=== PATIENT | male | born 1970 | race Hispanic/Latino ===

== ENCOUNTER 2017-10-05 18:00 | Emergency (ER) | payer OTHER ==
[~2017-10-05] VITALS: Ht 165.1 cm; Wt 75.0 kg
[2017-10-05] MEDS ORDERED: BACTRIM DS1 TAB PO (19:58)
[2017-10-05] MEDS ORDERED: CEPHALEXIN500 MG PO (19:58)
[2017-10-05 20:20] VITALS: BP 132/80
== END 2017-10-05 20:22 | disposition home or self-care (01) | DRG 605 ==
LOC: ED 18:00
PROC: 0HQDXZZ Repair Right Lower Arm Skin, External Approach (ICD-10-PCS; principal; 2017-10-05)
DX: S51.811A Laceration without foreign body of right forearm, initial encounter (principal); W31.2XXA Contact with powered woodworking and forming machines, initial encounter; Y93.H2 Activity, gardening and landscaping; Y92.007 Garden or yard of unspecified non-institutional (private) residence as the place of occurrence of the external cause

== ENCOUNTER 2023-06-24 21:45 | Inpatient (IN) | payer SELFPAY ==
[~2023-06-24] VITALS: Ht 165.1 cm; Wt 60.5 kg
[~2023-06-24 21:45] MED LIST: BACTRIM DS1 TAB PO; CEPHALEXIN500 MG PO
[2023-06-25] VITALS (26 sets, daily range): BP systolic 102–147; BP diastolic 49–105
[2023-06-25 05:49] LABS: BASO% 0.7 % (0-3); EOS% 3.2 % (0-8); HEMATOCRIT 30.3 % (39.0-50.0); HEMOGLOBIN 9.5 g/dl (14.0-18.0); IMMATURE GRANULOCYTES 0.9 % (0.0-5.0); LYMPH% 41.8 % (15-41); MEAN CELL VOLUME 91.5 fL CALC (80.0-100.0); MEAN CORPUSCULAR HGB 28.7 pG CALC (26.0-32.0); MEAN CORPUSCULAR HGB CONC 31.4 g/dL CAL (32.0-36.0); MONO% 10.8 % (2-13); NEUT# 3.21 thou/uL (1.82-7.42); NEUT% 42.6 % (42-76); RED BLOOD COUNT 3.31 mill/uL (4.70-6.10); RED CELL DISTRI WIDTH 17.5 % (11.5-15.5)
[2023-06-25 06:06] LABS: ALBUMIN 2.6 g/dL (3.2-5.0); ALKALINE PHOSPHATASE 631 u/l (38-126); ANION GAP 11 (6-22 (CALC)); BILIRUBIN, TOTAL 0.8 mg/dL (0.2-1.3); BUN 16 mg/dL (9-20); BUN/CREATININE RATIO 67 (12-20 (CALC)); CALCULATED LDLCHOLESTEROL 74 mg/dL (62-129 (CALC)); CARBON DIOXIDE 24 mmol/l (22-30); CHLORIDE 105 mmol/l (95-108); CHOLESTEROL HDL RATIO 3.2 (<4.4 (CALC)); CREATININE 0.2 mg/dL (0.7-1.3); GFR FOR AFR.AMER. > 60 ML/MIN (>=60 (CALC)); GFR OTHER RACES > 60 ML/MIN (>=60 (CALC)); HDL CHOLESTEROL 39 mg/dL (39.0-59.0); MAGNESIUM 1.6 mg/dL (1.6-2.3); POTASSIUM 3.8 mmol/l (3.5-5.1); SGOT/AST 71 u/l (17-59); SODIUM 136 mmol/l (137-146); TOTAL CHOLESTEROL 124 mg/dl (0-199); TOTAL PROTEIN 6.5 g/dL (6.3-8.2); TOTAL TRIGLYCERIDES 57 mg/dl (0-149); VLDL CHOLESTROL 11 mg/dl (8-62 (CALC))
[2023-06-26] VITALS (19 sets, daily range): BP systolic 105–161; BP diastolic 51–84
[2023-06-26 07:35] LABS: BASO% 0.6 % (0-3); EOS% 4.8 % (0-8); HEMATOCRIT 35.6 % (39.0-50.0); IMMATURE GRANULOCYTES 0.7 % (0.0-5.0); LYMPH% 37.5 % (15-41); MEAN CELL VOLUME 94.7 fL CALC (80.0-100.0); MEAN CORPUSCULAR HGB 29.3 pG CALC (26.0-32.0); MEAN CORPUSCULAR HGB CONC 30.9 g/dL CAL (32.0-36.0); MONO% 10.5 % (2-13); NEUT# 3.24 thou/uL (1.82-7.42); NEUT% 45.9 % (42-76); RED BLOOD COUNT 3.76 mill/uL (4.70-6.10); RED CELL DISTRI WIDTH 16.8 % (11.5-15.5)
[2023-06-26 08:01] LABS: ALBUMIN 2.7 g/dL (3.2-5.0); ALKALINE PHOSPHATASE 562 u/l (38-126); ANION GAP 10 (6-22 (CALC)); BILIRUBIN, TOTAL 0.9 mg/dL (0.2-1.3); BUN 9 mg/dL (9-20); BUN/CREATININE RATIO 47 (12-20 (CALC)); CARBON DIOXIDE 20 mmol/l (22-30); CHLORIDE 109 mmol/l (95-108); CREATININE 0.2 mg/dL (0.7-1.3); GFR FOR AFR.AMER. > 60 ML/MIN (>=60 (CALC)); GFR OTHER RACES > 60 ML/MIN (>=60 (CALC)); MAGNESIUM 1.7 mg/dL (1.6-2.3); POTASSIUM 3.9 mmol/l (3.5-5.1); SGOT/AST 78 u/l (17-59); SODIUM 136 mmol/l (137-146); TOTAL PROTEIN 6.9 g/dL (6.3-8.2)
[2023-06-27 03:22] VITALS: BP 97/49
[2023-06-27 07:04] VITALS: BP 119/55
[2023-06-27 11:00] VITALS: BP 122/69
[2023-06-27 11:13] LABS: HEMATOCRIT 31.9 % (39.0-50.0); HEMOGLOBIN 10.1 g/dl (14.0-18.0); MEAN CELL VOLUME 91.7 fL CALC (80.0-100.0); MEAN CORPUSCULAR HGB CONC 31.7 g/dL CAL (32.0-36.0); RED BLOOD COUNT 3.48 mill/uL (4.70-6.10); RED CELL DISTRI WIDTH 16.6 % (11.5-15.5)
[2023-06-27 11:38] LABS: ALBUMIN 2.7 g/dL (3.2-5.0); ALKALINE PHOSPHATASE 559 u/l (38-126); ANION GAP 9 (6-22 (CALC)); BILIRUBIN, TOTAL 0.6 mg/dL (0.2-1.3); BUN 16 mg/dL (9-20); BUN/CREATININE RATIO 58 (12-20 (CALC)); CHLORIDE 107 mmol/l (95-108); CREATININE 0.3 mg/dL (0.7-1.3); GFR FOR AFR.AMER. > 60 ML/MIN (>=60 (CALC)); GFR OTHER RACES > 60 ML/MIN (>=60 (CALC)); MAGNESIUM 1.7 mg/dL (1.6-2.3); POTASSIUM 4.1 mmol/l (3.5-5.1); SGOT/AST 90 u/l (17-59); SODIUM 139 mmol/l (137-146); TOTAL PROTEIN 6.4 g/dL (6.3-8.2)
[2023-06-27 11:39] LABS: CARBON DIOXIDE 27 mmol/l (22-30)
[2023-06-27 18:56] VITALS: BP 113/60
[2023-06-27 23:13] VITALS: BP 110/64
[2023-06-28 06:07] LABS: BASO% 0.4 % (0-3); EOS% 4.3 % (0-8); HEMATOCRIT 30.4 % (39.0-50.0); HEMOGLOBIN 9.6 g/dl (14.0-18.0); IMMATURE GRANULOCYTES 0.3 % (0.0-5.0); LYMPH% 47.1 % (15-41); MEAN CELL VOLUME 90.7 fL CALC (80.0-100.0); MEAN CORPUSCULAR HGB 28.7 pG CALC (26.0-32.0); MEAN CORPUSCULAR HGB CONC 31.6 g/dL CAL (32.0-36.0); MONO% 8.2 % (2-13); NEUT# 2.7 thou/uL (1.82-7.42); NEUT% 39.7 % (42-76); RED BLOOD COUNT 3.35 mill/uL (4.70-6.10); RED CELL DISTRI WIDTH 16.5 % (11.5-15.5)
[2023-06-28 06:23] LABS: ALBUMIN 2.4 g/dL (3.2-5.0); ALKALINE PHOSPHATASE 488 u/l (38-126); ANION GAP 12 (6-22 (CALC)); BILIRUBIN, TOTAL 0.8 mg/dL (0.2-1.3); BUN 13 mg/dL (9-20); BUN/CREATININE RATIO 48 (12-20 (CALC)); CARBON DIOXIDE 23 mmol/l (22-30); CHLORIDE 107 mmol/l (95-108); CREATININE 0.3 mg/dL (0.7-1.3); GFR FOR AFR.AMER. > 60 ML/MIN (>=60 (CALC)); GFR OTHER RACES > 60 ML/MIN (>=60 (CALC)); MAGNESIUM 1.7 mg/dL (1.6-2.3); POTASSIUM 3.9 mmol/l (3.5-5.1); SGOT/AST 59 u/l (17-59); SODIUM 137 mmol/l (137-146); TOTAL PROTEIN 5.9 g/dL (6.3-8.2)
[2023-06-28 07:06] VITALS: BP 102/63
[2023-06-28 10:18] VITALS: BP 117/69
[2023-06-28 15:14] VITALS: BP 95/54
[2023-06-28 18:58] VITALS: BP 103/50
[2023-06-28 23:23] VITALS: BP 92/47
[2023-06-28 23:40] VITALS: BP 92/47
[2023-06-29 03:40] VITALS: BP 107/78
[2023-06-29 06:37] LABS: HEMATOCRIT 31.5 % (39.0-50.0); HEMOGLOBIN 10.1 g/dl (14.0-18.0); MEAN CELL VOLUME 90.3 fL CALC (80.0-100.0); MEAN CORPUSCULAR HGB 28.9 pG CALC (26.0-32.0); MEAN CORPUSCULAR HGB CONC 32.1 g/dL CAL (32.0-36.0); RED BLOOD COUNT 3.49 mill/uL (4.70-6.10); RED CELL DISTRI WIDTH 16.2 % (11.5-15.5)
[2023-06-29 06:59] VITALS: BP 126/60
[2023-06-29 07:00] LABS: ANION GAP 11 (6-22 (CALC)); BUN 13 mg/dL (9-20); BUN/CREATININE RATIO 58 (12-20 (CALC)); CARBON DIOXIDE 22 mmol/l (22-30); CHLORIDE 107 mmol/l (95-108); CREATININE 0.2 mg/dL (0.7-1.3); GFR FOR AFR.AMER. > 60 ML/MIN (>=60 (CALC)); GFR OTHER RACES > 60 ML/MIN (>=60 (CALC)); MAGNESIUM 1.6 mg/dL (1.6-2.3); SODIUM 136 mmol/l (137-146)
[2023-06-29 10:40] VITALS: BP 111/61
[2023-06-29 14:51] VITALS: BP 104/60
[2023-06-29 19:14] VITALS: BP 106/62
[2023-06-29 23:17] VITALS: BP 106/56
[2023-06-30] VITALS (7 sets, daily range): BP systolic 99–110; BP diastolic 51–64
[2023-06-30 07:04] LABS: BASO% 0.6 % (0-3); EOS% 5.4 % (0-8); HEMATOCRIT 32.8 % (39.0-50.0); HEMOGLOBIN 10.5 g/dl (14.0-18.0); IMMATURE GRANULOCYTES 0.3 % (0.0-5.0); LYMPH% 37.7 % (15-41); MEAN CELL VOLUME 89.6 fL CALC (80.0-100.0); MEAN CORPUSCULAR HGB 28.7 pG CALC (26.0-32.0); MONO% 7.6 % (2-13); NEUT# 4.3 thou/uL (1.82-7.42); NEUT% 48.4 % (42-76); RED BLOOD COUNT 3.66 mill/uL (4.70-6.10); RED CELL DISTRI WIDTH 16.5 % (11.5-15.5)
[2023-06-30 07:12] LABS: ALKALINE PHOSPHATASE 454 u/l (38-126); ANION GAP 12 (6-22 (CALC)); BILIRUBIN, TOTAL 0.9 mg/dL (0.2-1.3); BUN 10 mg/dL (9-20); BUN/CREATININE RATIO 39 (12-20 (CALC)); CARBON DIOXIDE 22 mmol/l (22-30); CHLORIDE 107 mmol/l (95-108); CREATININE 0.3 mg/dL (0.7-1.3); GFR FOR AFR.AMER. > 60 ML/MIN (>=60 (CALC)); GFR OTHER RACES > 60 ML/MIN (>=60 (CALC)); MAGNESIUM 1.7 mg/dL (1.6-2.3); POTASSIUM 3.7 mmol/l (3.5-5.1); SGOT/AST 52 u/l (17-59); SODIUM 137 mmol/l (137-146); TOTAL PROTEIN 6.8 g/dL (6.3-8.2)
[2023-06-30 07:24] LABS: ALBUMIN 2.9 g/dL (3.2-5.0)
[2023-07-01] VITALS (9 sets, daily range): BP systolic 94–129; BP diastolic 43–70
[2023-07-01 07:42] LABS: BASO% 0.7 % (0-3); EOS% 4.6 % (0-8); IMMATURE GRANULOCYTES 0.3 % (0.0-5.0); LYMPH% 32.3 % (15-41); MEAN CELL VOLUME 90.2 fL CALC (80.0-100.0); MEAN CORPUSCULAR HGB 28.4 pG CALC (26.0-32.0); MEAN CORPUSCULAR HGB CONC 31.4 g/dL CAL (32.0-36.0); MONO% 10.2 % (2-13); NEUT# 4.54 thou/uL (1.82-7.42); NEUT% 51.9 % (42-76); RED BLOOD COUNT 3.88 mill/uL (4.70-6.10); RED CELL DISTRI WIDTH 16.4 % (11.5-15.5)
[2023-07-01 07:55] LABS: ALBUMIN 2.9 g/dL (3.2-5.0); ALKALINE PHOSPHATASE 484 u/l (38-126); ANION GAP 12 (6-22 (CALC)); BUN 9 mg/dL (9-20); BUN/CREATININE RATIO 38 (12-20 (CALC)); CARBON DIOXIDE 22 mmol/l (22-30); CHLORIDE 107 mmol/l (95-108); CREATININE 0.2 mg/dL (0.7-1.3); GFR FOR AFR.AMER. > 60 ML/MIN (>=60 (CALC)); GFR OTHER RACES > 60 ML/MIN (>=60 (CALC)); MAGNESIUM 1.7 mg/dL (1.6-2.3); SGOT/AST 54 u/l (17-59); SODIUM 138 mmol/l (137-146); TOTAL PROTEIN 6.6 g/dL (6.3-8.2)
[2023-07-02 00:06] VITALS: BP 98/47
[2023-07-02 04:14] VITALS: BP 121/63
[2023-07-02 06:03] LABS: BASO% 0.6 % (0-3); EOS% 6.5 % (0-8); HEMATOCRIT 29.2 % (39.0-50.0); HEMOGLOBIN 9.5 g/dl (14.0-18.0); IMMATURE GRANULOCYTES 0.7 % (0.0-5.0); LYMPH% 41.5 % (15-41); MEAN CELL VOLUME 90.4 fL CALC (80.0-100.0); MEAN CORPUSCULAR HGB 29.4 pG CALC (26.0-32.0); MEAN CORPUSCULAR HGB CONC 32.5 g/dL CAL (32.0-36.0); MONO% 9.5 % (2-13); NEUT# 3.45 thou/uL (1.82-7.42); NEUT% 41.2 % (42-76); RED BLOOD COUNT 3.23 mill/uL (4.70-6.10); RED CELL DISTRI WIDTH 16.5 % (11.5-15.5)
[2023-07-02 06:16] LABS: ALBUMIN 2.8 g/dL (3.2-5.0); ALKALINE PHOSPHATASE 447 u/l (38-126); ANION GAP 11 (6-22 (CALC)); BUN 13 mg/dL (9-20); BUN/CREATININE RATIO 50 (12-20 (CALC)); CARBON DIOXIDE 23 mmol/l (22-30); CHLORIDE 105 mmol/l (95-108); CREATININE 0.3 mg/dL (0.7-1.3); GFR FOR AFR.AMER. > 60 ML/MIN (>=60 (CALC)); GFR OTHER RACES > 60 ML/MIN (>=60 (CALC)); MAGNESIUM 1.7 mg/dL (1.6-2.3); POTASSIUM 4.1 mmol/l (3.5-5.1); SGOT/AST 48 u/l (17-59); SODIUM 135 mmol/l (137-146); TOTAL PROTEIN 6.4 g/dL (6.3-8.2)
[2023-07-02 06:43] VITALS: BP 123/56
[2023-07-02 10:43] VITALS: BP 117/55
[2023-07-02 15:27] VITALS: BP 107/50
[2023-07-02 19:05] VITALS: BP 115/59
[2023-07-03] VITALS (12 sets, daily range): BP systolic 95–170; BP diastolic 50–86
[2023-07-03 04:54] LABS: BASO% 0.7 % (0-3); EOS% 10.4 % (0-8); HEMATOCRIT 29.2 % (39.0-50.0); HEMOGLOBIN 9.3 g/dl (14.0-18.0); LYMPH% 43.5 % (15-41); MEAN CELL VOLUME 91.8 fL CALC (80.0-100.0); MEAN CORPUSCULAR HGB 29.2 pG CALC (26.0-32.0); MEAN CORPUSCULAR HGB CONC 31.8 g/dL CAL (32.0-36.0); NEUT# 2.48 thou/uL (1.82-7.42); NEUT% 34.4 % (42-76); RED BLOOD COUNT 3.18 mill/uL (4.70-6.10); RED CELL DISTRI WIDTH 16.4 % (11.5-15.5)
[2023-07-03 05:13] LABS: ALBUMIN 2.7 g/dL (3.2-5.0); ALKALINE PHOSPHATASE 432 u/l (38-126); ANION GAP 9 (6-22 (CALC)); BILIRUBIN, TOTAL 0.8 mg/dL (0.2-1.3); BUN 12 mg/dL (9-20); BUN/CREATININE RATIO 47 (12-20 (CALC)); CARBON DIOXIDE 23 mmol/l (22-30); CHLORIDE 106 mmol/l (95-108); CREATININE 0.2 mg/dL (0.7-1.3); GFR FOR AFR.AMER. > 60 ML/MIN (>=60 (CALC)); GFR OTHER RACES > 60 ML/MIN (>=60 (CALC)); POTASSIUM 3.9 mmol/l (3.5-5.1); SGOT/AST 47 u/l (17-59); SODIUM 135 mmol/l (137-146); TOTAL PROTEIN 6.3 g/dL (6.3-8.2)
[2023-07-04] VITALS (7 sets, daily range): BP systolic 107–125; BP diastolic 49–71
[2023-07-04 05:22] LABS: BASO% 0.5 % (0-3); EOS% 9.7 % (0-8); HEMATOCRIT 30.4 % (39.0-50.0); HEMOGLOBIN 9.7 g/dl (14.0-18.0); IMMATURE GRANULOCYTES 0.8 % (0.0-5.0); LYMPH% 39.3 % (15-41); MEAN CELL VOLUME 90.5 fL CALC (80.0-100.0); MEAN CORPUSCULAR HGB 28.9 pG CALC (26.0-32.0); MEAN CORPUSCULAR HGB CONC 31.9 g/dL CAL (32.0-36.0); MONO% 11.4 % (2-13); NEUT# 2.9 thou/uL (1.82-7.42); NEUT% 38.3 % (42-76); RED BLOOD COUNT 3.36 mill/uL (4.70-6.10)
[2023-07-04 05:32] LABS: ALBUMIN 2.9 g/dL (3.2-5.0); ALKALINE PHOSPHATASE 432 u/l (38-126); ANION GAP 11 (6-22 (CALC)); BUN 8 mg/dL (9-20); BUN/CREATININE RATIO 30 (12-20 (CALC)); CARBON DIOXIDE 23 mmol/l (22-30); CHLORIDE 105 mmol/l (95-108); CREATININE 0.3 mg/dL (0.7-1.3); GFR FOR AFR.AMER. > 60 ML/MIN (>=60 (CALC)); GFR OTHER RACES > 60 ML/MIN (>=60 (CALC)); MAGNESIUM 1.5 mg/dL (1.6-2.3); POTASSIUM 3.8 mmol/l (3.5-5.1); SGOT/AST 47 u/l (17-59); SODIUM 136 mmol/l (137-146); TOTAL PROTEIN 6.6 g/dL (6.3-8.2)
[2023-07-05] VITALS (8 sets, daily range): BP systolic 104–127; BP diastolic 57–67
[2023-07-05 07:02] LABS: BASO% 0.8 % (0-3); EOS% 11.1 % (0-8); HEMATOCRIT 31.7 % (39.0-50.0); HEMOGLOBIN 10.2 g/dl (14.0-18.0); IMMATURE GRANULOCYTES 0.5 % (0.0-5.0); LYMPH% 37.1 % (15-41); MEAN CELL VOLUME 90.1 fL CALC (80.0-100.0); MEAN CORPUSCULAR HGB CONC 32.2 g/dL CAL (32.0-36.0); MONO% 11.5 % (2-13); NEUT# 2.94 thou/uL (1.82-7.42); RED BLOOD COUNT 3.52 mill/uL (4.70-6.10); RED CELL DISTRI WIDTH 15.9 % (11.5-15.5)
[2023-07-05 07:41] LABS: ALBUMIN 2.9 g/dL (3.2-5.0); ALKALINE PHOSPHATASE 366 u/l (38-126); ANION GAP 12 (6-22 (CALC)); BILIRUBIN, TOTAL 0.9 mg/dL (0.2-1.3); BUN 5 mg/dL (9-20); BUN/CREATININE RATIO 19 (12-20 (CALC)); CARBON DIOXIDE 24 mmol/l (22-30); CHLORIDE 105 mmol/l (95-108); CREATININE 0.3 mg/dL (0.7-1.3); GFR FOR AFR.AMER. > 60 ML/MIN (>=60 (CALC)); GFR OTHER RACES > 60 ML/MIN (>=60 (CALC)); MAGNESIUM 1.6 mg/dL (1.6-2.3); POTASSIUM 3.8 mmol/l (3.5-5.1); SGOT/AST 42 u/l (17-59); SODIUM 137 mmol/l (137-146); TOTAL PROTEIN 6.5 g/dL (6.3-8.2)
[2023-07-06] VITALS (9 sets, daily range): BP systolic 98–122; BP diastolic 54–66
[2023-07-06 06:27] LABS: HEMATOCRIT 33.2 % (39.0-50.0); HEMOGLOBIN 10.7 g/dl (14.0-18.0); MEAN CORPUSCULAR HGB CONC 32.2 g/dL CAL (32.0-36.0); RED BLOOD COUNT 3.69 mill/uL (4.70-6.10); RED CELL DISTRI WIDTH 15.9 % (11.5-15.5)
[2023-07-06 06:38] LABS: ALBUMIN 2.9 g/dL (3.2-5.0); ALKALINE PHOSPHATASE 349 u/l (38-126); ANION GAP 11 (6-22 (CALC)); BILIRUBIN, TOTAL 0.9 mg/dL (0.2-1.3); BUN 6 mg/dL (9-20); BUN/CREATININE RATIO 20 (12-20 (CALC)); CARBON DIOXIDE 24 mmol/l (22-30); CHLORIDE 107 mmol/l (95-108); CREATININE 0.3 mg/dL (0.7-1.3); GFR FOR AFR.AMER. > 60 ML/MIN (>=60 (CALC)); GFR OTHER RACES > 60 ML/MIN (>=60 (CALC)); MAGNESIUM 1.7 mg/dL (1.6-2.3); SGOT/AST 39 u/l (17-59); SODIUM 137 mmol/l (137-146); TOTAL PROTEIN 6.4 g/dL (6.3-8.2)
[2023-07-07 00:18] VITALS: BP 109/53
[2023-07-07 04:49] VITALS: BP 116/56
[2023-07-07 05:28] LABS: HEMATOCRIT 33.7 % (39.0-50.0); MEAN CELL VOLUME 90.1 fL CALC (80.0-100.0); MEAN CORPUSCULAR HGB 29.4 pG CALC (26.0-32.0); MEAN CORPUSCULAR HGB CONC 32.6 g/dL CAL (32.0-36.0); RED BLOOD COUNT 3.74 mill/uL (4.70-6.10); RED CELL DISTRI WIDTH 15.7 % (11.5-15.5)
[2023-07-07 05:41] LABS: ALBUMIN 2.9 g/dL (3.2-5.0); ALKALINE PHOSPHATASE 314 u/l (38-126); ANION GAP 10 (6-22 (CALC)); BILIRUBIN, TOTAL 0.6 mg/dL (0.2-1.3); BUN 11 mg/dL (9-20); BUN/CREATININE RATIO 34 (12-20 (CALC)); CARBON DIOXIDE 26 mmol/l (22-30); CHLORIDE 105 mmol/l (95-108); CREATININE 0.3 mg/dL (0.7-1.3); GFR FOR AFR.AMER. > 60 ML/MIN (>=60 (CALC)); GFR OTHER RACES > 60 ML/MIN (>=60 (CALC)); MAGNESIUM 1.6 mg/dL (1.6-2.3); POTASSIUM 4.2 mmol/l (3.5-5.1); SGOT/AST 36 u/l (17-59); SODIUM 137 mmol/l (137-146); TOTAL PROTEIN 6.5 g/dL (6.3-8.2)
[2023-07-07 07:09] VITALS: BP 112/54
[2023-07-07 10:11] VITALS: BP 132/50
[2023-07-07 15:05] VITALS: BP 112/64
[2023-07-07 19:10] VITALS: BP 107/65
[2023-07-08] VITALS (12 sets, daily range): BP systolic 104–129; BP diastolic 56–86
[2023-07-08 06:02] LABS: HEMATOCRIT 33.5 % (39.0-50.0); MEAN CELL VOLUME 89.6 fL CALC (80.0-100.0); MEAN CORPUSCULAR HGB 29.4 pG CALC (26.0-32.0); MEAN CORPUSCULAR HGB CONC 32.8 g/dL CAL (32.0-36.0); RED BLOOD COUNT 3.74 mill/uL (4.70-6.10); RED CELL DISTRI WIDTH 15.6 % (11.5-15.5)
[2023-07-08 06:31] LABS: ALBUMIN 2.9 g/dL (3.2-5.0); ALKALINE PHOSPHATASE 284 u/l (38-126); ANION GAP 10 (6-22 (CALC)); BILIRUBIN, TOTAL 0.7 mg/dL (0.2-1.3); BUN 9 mg/dL (9-20); BUN/CREATININE RATIO 27 (12-20 (CALC)); CARBON DIOXIDE 24 mmol/l (22-30); CHLORIDE 106 mmol/l (95-108); CREATININE 0.4 mg/dL (0.7-1.3); GFR FOR AFR.AMER. > 60 ML/MIN (>=60 (CALC)); GFR OTHER RACES > 60 ML/MIN (>=60 (CALC)); MAGNESIUM 1.5 mg/dL (1.6-2.3); SGOT/AST 35 u/l (17-59); SODIUM 136 mmol/l (137-146); TOTAL PROTEIN 6.4 g/dL (6.3-8.2)
[2023-07-08] MEDS ORDERED: DIGOXIN0.125 MG PO (14:34)
[2023-07-08] MEDS ORDERED: CARDIZEM30 MG PO (14:35)
[2023-07-08] MEDS ORDERED: TOPROL XL25 MG PO (14:35)
[2023-07-08] MEDS ORDERED: ALDACTONE25 MG PO (14:36)
[2023-07-09 04:24] VITALS: BP 130/81
[2023-07-09 05:51] LABS: HEMATOCRIT 36.5 % (39.0-50.0); HEMOGLOBIN 11.8 g/dl (14.0-18.0); MEAN CORPUSCULAR HGB 28.8 pG CALC (26.0-32.0); MEAN CORPUSCULAR HGB CONC 32.3 g/dL CAL (32.0-36.0); RED BLOOD COUNT 4.1 mill/uL (4.70-6.10); RED CELL DISTRI WIDTH 15.7 % (11.5-15.5)
[2023-07-09 06:11] LABS: ANION GAP 13 (6-22 (CALC)); BUN 9 mg/dL (9-20); BUN/CREATININE RATIO 26 (12-20 (CALC)); CARBON DIOXIDE 24 mmol/l (22-30); CHLORIDE 105 mmol/l (95-108); CREATININE 0.3 mg/dL (0.7-1.3); GFR FOR AFR.AMER. > 60 ML/MIN (>=60 (CALC)); GFR OTHER RACES > 60 ML/MIN (>=60 (CALC)); POTASSIUM 3.6 mmol/l (3.5-5.1); SODIUM 139 mmol/l (137-146)
[2023-07-09 07:17] VITALS: BP 127/65
[2023-07-09 11:18] VITALS: BP 116/77
== END 2023-07-09 13:23 | disposition home or self-care (01) | DRG 920 ==
LOC: ICU 21:45 → MS2 21:45 → ICU 06-26 15:19 → MS2 06-26 15:19
PROVIDERS: Nurse Practitioner Family; Student in an Organized Health Care Education/Training Program; ADMIT Student in an Organized Health Care Education/Training Program; ATTEND Student in an Organized Health Care Education/Training Program
DX: T86.822 Skin graft (allograft) (autograft) infection (principal); I48.92 Unspecified atrial flutter; T22.231A Burn of second degree of right upper arm, initial encounter; T21.21XA Burn of second degree of chest wall, initial encounter; T24.211A Burn of second degree of right thigh, initial encounter; T24.221A Burn of second degree of right knee, initial encounter; T20.27XA Burn of second degree of neck, initial encounter; T24.212A Burn of second degree of left thigh, initial encounter; T31.0 Burns involving less than 10% of body surface; M24.541 Contracture, right hand; I48.91 Unspecified atrial fibrillation; K80.20 Calculus of gallbladder without cholecystitis without obstruction; K70.9 Alcoholic liver disease, unspecified; F10.10 Alcohol abuse, uncomplicated; G31.89 Other specified degenerative diseases of nervous system; L89.812 Pressure ulcer of head, stage 2; R00.1 Bradycardia, unspecified; R13.19 Other dysphagia; B96.89 Other specified bacterial agents as the cause of diseases classified elsewhere; X08.8XXA Exposure to other specified smoke, fire and flames, initial encounter; Y83.2 Surgical operation with anastomosis, bypass or graft as the cause of abnormal reaction of the patient, or of later complication, without mention of misadventure at the time of the procedure
CPT/HCPCS: J1335; J1650; J3475

== ENCOUNTER 2024-06-28 20:05 | Emergency (ER) | payer SELFPAY ==
[2024-06-28] VITALS (9 sets, daily range): BP systolic 143–180; BP diastolic 80–106
[~2024-06-28] VITALS: Ht 165.1 cm; Wt 75.0 kg
[~2024-06-28 20:05] MED LIST changes: +ALDACTONE25 MG PO; +CARDIZEM30 MG PO; +DIGOXIN0.125 MG PO; +TOPROL XL25 MG PO
[2024-06-28] MEDS ORDERED: SODIUM CHLORIDE 0.9% 1,000 ML IV ONE (20:25)
[2024-06-28 20:43] LABS: BASO% 0.2 % (0-3); EOS% 0.1 % (0-8); HEMATOCRIT 40.7 % (39.0-50.0); HEMOGLOBIN 13.9 g/dl (14.0-18.0); IMMATURE GRANULOCYTES 0.8 % (0.0-5.0); LYMPH% 11.2 % (15-41); MEAN CELL VOLUME 91.3 fL CALC (80.0-100.0); MEAN CORPUSCULAR HGB 31.2 pG CALC (26.0-32.0); MEAN CORPUSCULAR HGB CONC 34.2 g/dL CAL (32.0-36.0); MONO% 7.5 % (2-13); NEUT# 12.78 thou/uL (1.82-7.42); NEUT% 80.2 % (42-76); RED BLOOD COUNT 4.46 mill/uL (4.70-6.10); RED CELL DISTRI WIDTH 13.3 % (11.5-15.5)
[2024-06-28 20:57] LABS: ALBUMIN 4.6 g/dL (3.2-5.0); BILIRUBIN, TOTAL 1.6 mg/dL (0.2-1.3); CREATININE 0.5 mg/dL (0.7-1.3); POTASSIUM 3.9 mmol/l (3.5-5.1); TOTAL PROTEIN 7.9 g/dL (6.3-8.2)
[2024-06-28 20:58] LABS: INTERNATIONAL NORMALIZED RATIO 1.1 RATIO (0.7-1.3)
[2024-06-28 21:01] LABS: PROTHROMBIN TIME 11.3 SECONDS (9.0-12.5)
[2024-06-28] MEDS ORDERED: WARFARIN SODIUM1 MG PO (21:50)
[2024-06-28] MEDS ORDERED: ASPIRINCHW 81MG PO (21:50)
[2024-06-28] MEDS ORDERED: hydrALAZINE HCL 20 MG/ML VIAL(1 ML) IV ONE (22:05)
[2024-06-28] MEDS ORDERED: Diph, Acellular Pertussis, Tet 0.5 ML/VIAL (Tdap) SDV IM ONE (22:25)
[2024-06-28 22:37] LABS: URINE BLOOD DIPSTICK Trace-intact (NEGATIVE); URINE GLUCOSE - DIPSTICK 250 mg/dL (NEGATIVE); URINE KETONE Trace mg/dL (NEGATIVE); URINE LEUK ESTERASE Negative (NEGATIVE); URINE NITRITE - DIPSTICK Negative (Negative); URINE PROTEIN - DIPSTICK 30 mg/dL (NEG-TRACE)
[2024-06-28 22:38] LABS: URINE COLOR Dark yellow
[2024-06-28 22:43] LABS: URINE RBC 0-2 RBC/hpf (0-5); URINE RENAL EPITHELIAL CELLS FEW hpf
== END 2024-06-28 22:32 | disposition short-term general hospital (02) | DRG 552 ==
LOC: ED 20:05
PROVIDERS: Family Medicine
PROC: 0T9B70Z Drainage of Bladder with Drainage Device, Via Natural or Artificial Opening (ICD-10-PCS; principal; 2024-06-28)
DX: S12.190A Other displaced fracture of second cervical vertebra, initial encounter for closed fracture (principal); R47.01 Aphasia; S00.83XA Contusion of other part of head, initial encounter; S40.022A Contusion of left upper arm, initial encounter; S44.92XA Injury of unspecified nerve at shoulder and upper arm level, left arm, initial encounter; S44.91XA Injury of unspecified nerve at shoulder and upper arm level, right arm, initial encounter; F79 Unspecified intellectual disabilities; W19.XXXA Unspecified fall, initial encounter; Z79.82 Long term (current) use of aspirin; Z79.01 Long term (current) use of anticoagulants
CPT/HCPCS: 90715; J0360